=== PATIENT | female | born 1990 | race Asian ===

== ENCOUNTER 2019-06-01 19:41 | Emergency (ER) | payer OTHER ==
[~2019-06-01] VITALS: Ht 157.5 cm; Wt 64.0 kg
[2019-06-01 20:20] VITALS: Ht 157.5 cm; Wt 64.0 kg
[2019-06-01 22:01] VITALS: BP 140/86
== END 2019-06-01 22:01 | disposition home or self-care (01) ==
LOC: ED 19:41
DX: S93.401A Sprain of unspecified ligament of right ankle, initial encounter (principal); X50.1XXA Overexertion from prolonged static or awkward postures, initial encounter; Y93.31 Activity, mountain climbing, rock climbing and wall climbing; Y92.89 Other specified places as the place of occurrence of the external cause; Y99.8 Other external cause status